=== PATIENT | female | born 1990 | race Caucasian/White ===

== ENCOUNTER 2018-11-24 17:56 | Emergency (ER) | payer MEDICAID ==
[~2018-11-24] VITALS: Ht 175.3 cm; Wt 75.0 kg
[~2018-11-24 17:56] MED LIST: CYCL-1 PO; PARO40TA4 PO
[2018-11-24 19:34] VITALS: BP 102/64
[2018-11-24 20:08] LABS: CLARITY,URINE SLIGHTLY CLOUDY (Clear); COLOR,URINE YELLOW (Yellow); GLUCOSE, URINE NEGATIVE (Neg); KETONES,URINE NEGATIVE (Neg); LEUKOCYTE ESTERASE ,URINE MODERATE (Neg); NITRITES, URINE POSITIVE (Neg); OCCULT BLOOD,URINE LARGE (Neg); PROTEIN,URINE >=300 mg/dl (Neg)
[2018-11-24 20:10] LABS: URINE HCG NEGATIVE (NEG)
[2018-11-24 20:16] LABS: UA COLLECTION TYPE CLN CATCH MIDSTREAM
[2018-11-24 20:18] LABS: BACTERIA,URINE 4+ /HPF (Neg); RBC,URINE TNTC /HPF (0-2); SQUAMOUS EPITHELIAL CELL,UR FEW /LPF (FEW); WBC,URINE TNTC /HPF (0-4)
[2018-11-24] MEDS ORDERED: ACET-3067 PO (21:49)
[2018-11-24] MEDS ORDERED: CEPH500C5 PO (21:49)
[2018-11-24] MEDS ORDERED: phenazopyridine 100mg tablet PO ONE (21:50)
[2018-11-24] MEDS ORDERED: HYDROcodone/acetaminophen 5mg/325mg tablet PO ONE (21:50)
== END 2018-11-24 22:22 | disposition home or self-care (01) ==
LOC: ER 17:56
DX: N39.0 Urinary tract infection, site not specified (principal); Z79.2 Long term (current) use of antibiotics; Z79.899 Other long term (current) drug therapy
CPT/HCPCS: 81001; 81025; 87077; 87088; 87186; 99283

== ENCOUNTER 2019-02-22 18:28 | Emergency (ER) | payer MEDICAID ==
[~2019-02-22] VITALS: Ht 175.3 cm; Wt 133.6 kg
[2019-02-22 18:29] VITALS: BP 130/78
[2019-02-22 20:55] LABS: COLOR,URINE YELLOW (Yellow); GLUCOSE, URINE NEGATIVE (Neg); KETONES,URINE NEGATIVE (Neg); LEUKOCYTE ESTERASE ,URINE NEGATIVE (Neg); NITRITES, URINE NEGATIVE (Neg); OCCULT BLOOD,URINE NEGATIVE (Neg); PROTEIN,URINE NEGATIVE (Neg); UROBILINOGEN,URINE 0.2 E.U/dL (0.2-1.0)
[2019-02-22 20:56] LABS: URINE HCG NEGATIVE (NEG)
[2019-02-22 20:58] LABS: BASOPHILS # (AUTO) 0.1 X10'3 (0-0.2); BASOPHILS % (AUTO) 0.6 % (0-1); EOSINOPHILS # (AUTO) 0.1 X10'3 (0-0.9); EOSINOPHILS % (AUTO) 0.8 % (0-6); HEMATOCRIT 37.6 % (35.0-45.0); HEMOGLOBIN 12.5 g/dl (12.0-16.0); LYMPHOCYTES # (AUTO) 3.4 X10'3 (1.1-4.8); MEAN CORPUSCULAR HEMOGLOBIN 30.7 PG (27.0-31.0); MEAN CORPUSCULAR HGB CONC 33.3 g/dL (33.0-36.5); MEAN PLATELET VOLUME 8.2 FL (7.4-10.4); MONOCYTES # (AUTO) 0.9 X10'3 (0-0.9); NEUTROPHILS # (AUTO) 4.1 X10'3 (1.8-7.7); NEUTROPHILS % (AUTO) 48.6 % (42-75); PLATELET COUNT 301 X10'3 (140-440); RED BLOOD COUNT 4.08 X10'6 (4.20-5.60); RED CELL DISTRIBUTION WIDTH 12.1 % (11.5-14.5); WHITE BLOOD COUNT 8.5 X10'3 (4.5-11.0)
[2019-02-22 20:59] LABS: CLARITY,URINE CLEAR (Clear); UA COLLECTION TYPE VOIDED
[2019-02-22 21:12] LABS: ALANINE AMINOTRANSFERASE 116 U/L (12-78); ALBUMIN 3.7 G/DL (3.4-5.0); ALKALINE PHOSPHATASE 53 IU/L (46-116); ANION GAP 10 (8-16); ASPARTATE AMINO TRANSFERASE 75 U/L (10-37); BILIRUBIN,TOTAL 0.4 MG/DL (0.1-1.0); BLOOD UREA NITROGEN 14 MG/DL (7-18); BUN/CREATININE RATIO 19.2 (6.6-38.0); CHLORIDE 105 MMOL/L (99-107); CREATININE 0.73 MG/DL (0.40-0.90); GLUCOSE 78 MG/DL (70-104); POTASSIUM 3.3 MMOL/L (3.5-5.1); SODIUM 139 MMOL/L (135-145); TOTAL CARBON DIOXIDE 24.5 MMOL/L (24-32); TOTAL PROTEIN 7.4 G/DL (6.4-8.2); eGFR > 90 ML/MIN
[2019-02-22] MEDS ORDERED: PRED20TA PO (21:19)
[2019-02-22] MEDS ORDERED: FLUC150T66 PO (21:19)
[2019-02-22] MEDS ORDERED: CEPH-572 PO (21:26)
[2019-02-23 08:01] LABS: HIV ANTIBODY 1&2 RAPID NON-REACTIVE (Neg)
== END 2019-02-22 21:53 | disposition home or self-care (01) ==
LOC: ER 18:29
DX: N89.8 Other specified noninflammatory disorders of vagina (principal); R21 Rash and other nonspecific skin eruption; F42.4 Excoriation (skin-picking) disorder; R23.4 Changes in skin texture; R30.9 Painful micturition, unspecified; F15.10 Other stimulant abuse, uncomplicated; Z79.2 Long term (current) use of antibiotics; Z79.899 Other long term (current) drug therapy
CPT/HCPCS: 36415; 80053; 81003; 81025; 85025; 86703; 87210; 87491; 99283

== ENCOUNTER 2021-03-19 11:12 | Emergency (ER) | payer MEDICAID ==
[~2021-03-19] VITALS: Ht 175.3 cm; Wt 63.6 kg
[~2021-03-19 11:12] MED LIST changes: +CEPH-585 PO; -CYCL-1 PO; +ESCI20TA39 PO; +NICO-631 TD; +NICO-668 BC; +NITR100C11 PO; +NO HOME MEDS; -PARO40TA4 PO; +RISP2TAB85 PO
[2021-03-19 11:20] VITALS: BP 128/84
[2021-03-19] MEDS ORDERED: acetaminophen 325mg tablet PO ONE (12:35)
== END 2021-03-19 13:05 | disposition home or self-care (01) ==
LOC: ER 11:13
DX: F19.10 Other psychoactive substance abuse, uncomplicated (principal); Z00.00 Encounter for general adult medical examination without abnormal findings; Z79.2 Long term (current) use of antibiotics; Z79.899 Other long term (current) drug therapy; Z98.891 History of uterine scar from previous surgery
CPT/HCPCS: 99281

== ENCOUNTER 2021-06-17 03:56 | Emergency (ER) | payer MEDICAID ==
[~2021-06-17] VITALS: Ht 175.3 cm; Wt 65.2 kg
[2021-06-17 06:02] VITALS: BP 129/87
== END 2021-06-17 08:21 | disposition left against medical advice (07) ==
LOC: ER 03:56
DX: J34.89 Other specified disorders of nose and nasal sinuses (principal); Z53.21 Procedure and treatment not carried out due to patient leaving prior to being seen by health care provider

== ENCOUNTER 2021-10-01 01:28 | Emergency (ER) | payer MEDICAID ==
[~2021-10-01] VITALS: Ht 175.3 cm; Wt 54.5 kg
[2021-10-01 02:32] VITALS: BP 122/73
[2021-10-01] MEDS ORDERED: IBUP-1984 PO (08:15)
[2021-10-01] MEDS ORDERED: ketorolac trometh. 30mg/ml inj. IM ONE (08:20)
== END 2021-10-01 08:59 | disposition home or self-care (01) ==
LOC: ER 01:29
DX: M79.671 Pain in right foot (principal); F41.9 Anxiety disorder, unspecified; Z59.00 Homelessness unspecified; X58.XXXA Exposure to other specified factors, initial encounter; Y93.89 Activity, other specified; Y92.89 Other specified places as the place of occurrence of the external cause; Y99.8 Other external cause status; Z20.822 Contact with and (suspected) exposure to COVID-19
CPT/HCPCS: 87635; 96372; 99283; C9803; J1885

== ENCOUNTER 2021-10-14 22:29 | Emergency (ER) | payer MEDICAID ==
[~2021-10-14] VITALS: Ht 175.3 cm; Wt 63.6 kg
[2021-10-14 22:35] VITALS: BP 126/80
[2021-10-14] MEDS ORDERED: AMOX-117 PO (23:49)
[2021-10-14] MEDS ORDERED: amox tr/potassium clavulanate 875/125mg TAB PO ONE (23:50)
[2021-10-14] MEDS ORDERED: ketorolac trometh inj. 60 MG/2 ML VIAL IM ONE (23:50)
== END 2021-10-15 00:13 | disposition home or self-care (01) ==
LOC: ER 22:29
DX: K04.7 Periapical abscess without sinus (principal); K08.89 Other specified disorders of teeth and supporting structures; R68.84 Jaw pain; F41.9 Anxiety disorder, unspecified; Z79.2 Long term (current) use of antibiotics; Z79.899 Other long term (current) drug therapy
CPT/HCPCS: 96372; 99283; J1885

== ENCOUNTER 2021-10-23 10:53 | Emergency (ER) | payer MEDICAID ==
[~2021-10-23] VITALS: Ht 175.3 cm; Wt 68.2 kg
[~2021-10-23 10:53] MED LIST changes: +AMOX-117 PO
[2021-10-23 11:01] VITALS: BP 111/76
[2021-10-23 11:21] LABS: BASOPHILS % (AUTO) 0.6 % (0-1); EOSINOPHILS # (AUTO) 0.1 X10'3 (0-0.9); EOSINOPHILS % (AUTO) 1.2 % (0-6); HEMATOCRIT 38.5 % (35.0-45.0); HEMOGLOBIN 12.8 g/dl (12.0-16.0); LYMPHOCYTES # (AUTO) 2.8 X10'3 (1.1-4.8); LYMPHOCYTES % (AUTO) 41.5 % (21-51); MEAN CORPUSCULAR HEMOGLOBIN 30.6 PG (27.0-31.0); MEAN CORPUSCULAR HGB CONC 33.4 g/dL (33.0-36.5); MEAN CORPUSCULAR VOLUME 91.6 FL (78-98); MEAN PLATELET VOLUME 7.8 FL (7.4-10.4); MONOCYTES # (AUTO) 0.4 X10'3 (0-0.9); MONOCYTES % (AUTO) 6.5 % (2-12); NEUTROPHILS # (AUTO) 3.4 X10'3 (1.8-7.7); NEUTROPHILS % (AUTO) 50.2 % (42-75); PLATELET COUNT 331 X10'3 (140-440); RED CELL DISTRIBUTION WIDTH 14.7 % (11.5-14.5); WHITE BLOOD COUNT 6.8 X10'3 (4.5-11.0)
[2021-10-23 11:34] LABS: ALANINE AMINOTRANSFERASE 43 U/L (12-78); ALBUMIN 3.8 G/DL (3.4-5.0); ALBUMIN/GLOBULIN RATIO 0.9 (1.1-1.5); ALKALINE PHOSPHATASE 66 IU/L (46-116); ANION GAP 10 (8-16); ASPARTATE AMINO TRANSFERASE 26 U/L (10-37); BILIRUBIN,TOTAL 0.5 MG/DL (0.1-1.0); BLOOD UREA NITROGEN 16 MG/DL (7-18); CALCIUM 9.3 MG/DL (8.5-10.1); CHLORIDE 105 MMOL/L (99-107); CREATININE 0.64 MG/DL (0.40-0.90); GLUCOSE 95 MG/DL (70-104); SODIUM 139 MMOL/L (135-145); TOTAL PROTEIN 7.9 G/DL (6.4-8.2); eGFR > 90 ML/MIN
[2021-10-23 11:40] LABS: ETHANOL < 0.010 GM/DL (0.0-0.010)
--- NOTE | 2021-10-23 12:15 | NUR ---
Received patient to bed #24 at 1200. Pt ambulated to bed with [facility], pt's handcuffs were taken off and pt was changed into green scrubs. Pt has been cooperative.
[2021-10-23 12:28] LABS: CLARITY,URINE SLIGHTLY CLOUDY (Clear); COLOR,URINE YELLOW (Yellow); GLUCOSE, URINE NEGATIVE (Neg); KETONES,URINE NEGATIVE (Neg); LEUKOCYTE ESTERASE ,URINE NEGATIVE (Neg); NITRITES, URINE NEGATIVE (Neg); OCCULT BLOOD,URINE NEGATIVE (Neg); PROTEIN,URINE NEGATIVE (Neg); UA COLLECTION TYPE CLN CATCH MIDSTREAM; URINE HCG NEGATIVE (NEG)
[2021-10-23 12:37] LABS: BACTERIA,URINE 3+ /HPF (Neg); MUCUS STRANDS MANY /LPF (Neg); RBC,URINE NONE SEEN /HPF (0-2); SQUAMOUS EPITHELIAL CELL,UR MANY /LPF (FEW)
[2021-10-23 12:45] LABS: URINE AMPHETAMINE SCREEN NEGATIVE (Neg); URINE BARBITUATE SCREEN NEGATIVE (Neg); URINE BENZODIAZEPINES SCREEN NEGATIVE (Neg); URINE CANNABINOID SCREEN POSITIVE (Neg); URINE COCAINE SCREEN NEGATIVE (Neg); URINE METHADONE SCREEN NEGATIVE (Neg); URINE OPIATE SCREEN NEGATIVE (Neg); URINE PHENCYCLIDINE SCREEN NEGATIVE (Neg)
--- NOTE | 2021-10-23 12:52 | NUR ---
One on one with patient to assess psychotic symptoms. Pt sitting up in bed requested a cup coffee and stated she was hungry, coffee and sandwich were provided. 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 When asked if she knew date, year or current president pt shrugged shoulders and stated "I don't know." "I have no idea." "Uh-huh." Pt denies A/VH, but does endorse suicidal thoughts and wanting to be ." Pt again shrugs shoulders when asked if she has had any recent loss or stressors. Pt was [facility] for making suicidal statements telling the staff "I just want you to shoot me." "I don't care about living." Pt was arrested Saturday for public intoxication. Pt is a poor historian and says "I don't know" about all medical questions. Pt has varies ER visits in 2019. Pt's history shows she was admitted to [facility] on 01/2021 and at one time was followed by [facility], but not currently. Pt has hx of substance use cocaine and heroin. Current tox screen is positive for THC. Pt denies any home medications.
[2021-10-23] MEDS ORDERED: LORazepam 1 MG tablet PO ONE (13:25)
[2021-10-23] MEDS ORDERED: OLANZapine 2.5MG tablet PO SCH (13:35)
[2021-10-23] MEDS ORDERED: OLANZAPINE 5 MG TABLET PO SCH (13:40)
--- NOTE | 2021-10-23 13:50 | NUR ---
Pt was out of bed asking "When can I leave?" Pt is restless and wanting to leave. Pt appears to be responding to internal stimuli, rocking back and forth on her bed and inappropriately laughing. Received order for PO Ativan 1mg and Zyprexa 5mg. Pt took medication without issue.
--- NOTE | 2021-10-23 14:25 | NUR ---
PATIENT ELOPEMENT: PATIENT NOTED PACING AROUND THE UNIT RESPONDING TO AUDITORY HALLUCINATIONS/ INTERNAL STIMULI. NOTED INAPPROPRIATELY LAUGHING OUT LOUD AND ENDORSING THAT SHE WANTS TO GET OUT OF HERE. PATIENT REQUIRING FREQUENT REDIRECTION BACK TO HER ROOM. PATIENT GIVEN ONE TIME DOSE OF ATIVAN 1MG PO AND ZYPREXA 5MG PO PER MD ORDER. PATIENT CONTINUED TO WANDER OUT OF HER ROOM INTO THE HALLWAY CONSISTENTLY. PATIENT ELOPED FROM THE UNIT AT APPROXIMATELY 1405 DESPITE ATTEMPTS TO REDIRECT. ER SECURITY CONTACTED WITH LAST KNOWN SIGHTING OF PATIENT OUTSIDE OF HOSPITAL PROPERTY. FLOYD NOTIFIED OF ELOPEMENT.
== END 2021-10-23 14:30 ==
LOC: ER 10:53
DX: R45.851 Suicidal ideations (principal); Z20.822 Contact with and (suspected) exposure to COVID-19; M79.641 Pain in right hand; F41.9 Anxiety disorder, unspecified; Z79.2 Long term (current) use of antibiotics; Z79.899 Other long term (current) drug therapy
CPT/HCPCS: 36415; 80053; 80305; 80320; 81001; 81025; 84443; 85025; 87635; 99285; C9803

== ENCOUNTER 2021-11-02 16:39 | Emergency (ER) | payer MEDICAID ==
[~2021-11-02] VITALS: Ht 175.3 cm; Wt 68.6 kg
[~2021-11-02 16:39] MED LIST changes: -AMOX-117 PO
[2021-11-02 17:10] VITALS: BP 113/72
[2021-11-02] MEDS ORDERED: ketorolac trometh inj. 60 MG/2 ML VIAL IM ONE (18:25)
== END 2021-11-02 19:00 | disposition home or self-care (01) ==
LOC: ER 16:40
DX: S39.012A Strain of muscle, fascia and tendon of lower back, initial encounter (principal); F41.9 Anxiety disorder, unspecified; Z79.2 Long term (current) use of antibiotics; Z79.899 Other long term (current) drug therapy; X58.XXXA Exposure to other specified factors, initial encounter; Y93.89 Activity, other specified; Y92.89 Other specified places as the place of occurrence of the external cause; Y99.8 Other external cause status
CPT/HCPCS: 96372; 99283; J1885

== ENCOUNTER 2021-11-05 00:46 | Emergency (ER) | payer MEDICAID ==
[~2021-11-05] VITALS: Ht 175.3 cm; Wt 69.9 kg
[2021-11-05 01:54] VITALS: BP 115/75
[2021-11-05] MEDS ORDERED: CEPH-585 PO (07:17)
[2021-11-05] MEDS ORDERED: ketorolac trometh inj. 60 MG/2 ML VIAL IM ONE (07:20)
[2021-11-05 07:46] LABS: CLARITY,URINE CLOUDY (Clear); COLOR,URINE YELLOW (Yellow); GLUCOSE, URINE NEGATIVE (Neg); KETONES,URINE NEGATIVE (Neg); LEUKOCYTE ESTERASE ,URINE NEGATIVE (Neg); NITRITES, URINE NEGATIVE (Neg); OCCULT BLOOD,URINE NEGATIVE (Neg); PROTEIN,URINE NEGATIVE (Neg); UA COLLECTION TYPE CLN CATCH MIDSTREAM; UROBILINOGEN,URINE 0.2 E.U/dL (0.2-1.0)
[2021-11-05 07:48] LABS: URINE HCG NEGATIVE (NEG)
[2021-11-05 07:54] LABS: BACTERIA,URINE 4+ /HPF (Neg); CAL OXALATE CRYSTALS FEW /HPF (NEGATIVE); MUCUS STRANDS MODERATE /LPF (Neg); RBC,URINE 0-2 /HPF (0-2); SQUAMOUS EPITHELIAL CELL,UR MANY /LPF (FEW)
== END 2021-11-05 08:50 | disposition home or self-care (01) ==
LOC: ER 00:47
DX: N39.0 Urinary tract infection, site not specified (principal); G89.29 Other chronic pain; M54.50 Low back pain, unspecified; R30.0 Dysuria; F41.9 Anxiety disorder, unspecified; Z79.2 Long term (current) use of antibiotics; Z79.899 Other long term (current) drug therapy
CPT/HCPCS: 81001; 81025; 96372; 99283; J1885

== ENCOUNTER 2021-12-03 20:02 | Emergency (ER) | payer MEDICAID ==
[~2021-12-03] VITALS: Ht 172.7 cm; Wt 70.5 kg
[2021-12-03 21:26] VITALS: BP 101/60
== END 2021-12-03 22:32 | disposition left against medical advice (07) ==
LOC: ER 20:03
DX: M54.50 Low back pain, unspecified (principal); G89.29 Other chronic pain; Z79.899 Other long term (current) drug therapy
CPT/HCPCS: 99281

== ENCOUNTER 2022-02-04 01:17 | Emergency (ER) | payer MEDICAID ==
[~2022-02-04] VITALS: Ht 175.3 cm; Wt 71.8 kg
[2022-02-04 01:25] VITALS: BP 114/83
[2022-02-04] MEDS ORDERED: DOXYCYCLINE 100MG CAPSULE PO STA (03:02)
[2022-02-04] MEDS ORDERED: ketorolac trometh inj. 60 MG/2 ML VIAL IM ONE (03:05)
[2022-02-04] MEDS ORDERED: DOXY-1 PO (03:07)
== END 2022-02-04 03:38 | disposition home or self-care (01) ==
LOC: ER 01:18
DX: L98.498 Non-pressure chronic ulcer of skin of other sites with other specified severity (principal); M54.50 Low back pain, unspecified; F41.9 Anxiety disorder, unspecified; G89.29 Other chronic pain; Z79.2 Long term (current) use of antibiotics; Z79.899 Other long term (current) drug therapy
CPT/HCPCS: 96372; 99283; J1885

== ENCOUNTER 2022-04-07 01:14 | Emergency (ER) | payer MEDICAID ==
[~2022-04-07] VITALS: Ht 175.3 cm; Wt 69.1 kg
[2022-04-07 01:18] VITALS: BP 126/87
[2022-04-07] MEDS ORDERED: ketorolac trometh inj. 60 MG/2 ML VIAL IM ONE (02:25)
[2022-04-07] MEDS ORDERED: acetaminophen 325mg tablet PO ONE (02:25)
== END 2022-04-07 03:07 | disposition home or self-care (01) ==
LOC: ER 01:15
DX: M54.50 Low back pain, unspecified (principal); G89.29 Other chronic pain; F41.9 Anxiety disorder, unspecified; Z79.899 Other long term (current) drug therapy
CPT/HCPCS: 96372; 99283; J1885; J7040

== ENCOUNTER 2022-05-24 17:50 | Emergency (ER) | payer MEDICAID ==
[~2022-05-24] VITALS: Ht 172.7 cm; Wt 63.6 kg
[2022-05-24 18:03] VITALS: BP 95/61
[2022-05-24] MEDS ORDERED: oxyCODONE IR 5mg (immed. release) tablet PO ONE (18:35)
[2022-05-24] MEDS ORDERED: ondansetron 4mg rapidly disintigrating tab PO ONE (18:35)
== END 2022-05-24 22:15 ==
LOC: ER 17:50
DX: T65.6X1A Toxic effect of paints and dyes, not elsewhere classified, accidental (unintentional), initial encounter; G89.29 Other chronic pain; M54.50 Low back pain, unspecified
CPT/HCPCS: 99283

== ENCOUNTER 2024-01-25 12:52 | Emergency (ER) | payer MEDICAID ==
[~2024-01-25] VITALS: Ht 175.3 cm; Wt 62.3 kg
[~2024-01-25 12:52] MED LIST changes: +RISP-32 PO; -RISP2TAB85 PO
[2024-01-25 13:17] LABS: URINE HCG NEGATIVE (NEG)
[2024-01-25 13:19] LABS: CLARITY,URINE SLIGHTLY CLOUDY (Clear); COLOR,URINE ORANGE (Yellow); UA COLLECTION TYPE CLN CATCH MIDSTREAM
[2024-01-25 13:27] LABS: BACTERIA,URINE 1+ /HPF (Neg); SQUAMOUS EPITHELIAL CELL,UR MODERATE /LPF (FEW); WBC,URINE 30-50 /HPF (0-4)
[2024-01-25 13:28] LABS: CAL OXALATE CRYSTALS 2+ /HPF (NEGATIVE); MUCUS STRANDS FEW /LPF (Neg)
[2024-01-25] MEDS ORDERED: SULF1TAB45 PO (14:41)
[2024-01-25] MEDS ORDERED: METR-159 PO (14:41)
[2024-01-25 14:57] VITALS: BP 103/68; PULSE 108; RESP 16; TEMP 98; O2SAT 100
== END 2024-01-25 14:58 | disposition home or self-care (01) ==
LOC: ER 12:54
DX: N23 Unspecified renal colic (principal); A59.9 Trichomoniasis, unspecified; G89.29 Other chronic pain; F41.9 Anxiety disorder, unspecified; Z79.2 Long term (current) use of antibiotics; Z79.899 Other long term (current) drug therapy
CPT/HCPCS: 81001; 81025; 87077; 87088; 87186; 99283

== ENCOUNTER 2024-05-03 17:03 | Emergency (ER) | payer MEDICAID ==
[~2024-05-03] VITALS: Ht 170.2 cm; Wt 61.4 kg
[2024-05-03 19:08] VITALS: BP 115/70
[2024-05-03] MEDS: ondansetron 4mg rapidly disintigrating tab PO ONE (19:23)
[2024-05-03] MEDS: LORazepam 1 MG tablet PO ONE (20:15)
[2024-05-04 00:45] VITALS: PULSE 73; RESP 16; TEMP 97.8; O2SAT 98
== END 2024-05-04 00:47 | disposition home or self-care (01) ==
LOC: ER 17:03
DX: T50.901A Poisoning by unspecified drugs, medicaments and biological substances, accidental (unintentional), initial encounter (principal); Z79.2 Long term (current) use of antibiotics; Z79.899 Other long term (current) drug therapy; Y92.89 Other specified places as the place of occurrence of the external cause
CPT/HCPCS: 99285

== ENCOUNTER 2024-11-25 11:52 | Emergency (ER) | payer MEDICAID ==
[~2024-11-25] VITALS: Ht 175.3 cm; Wt 91.5 kg
[2024-11-25 12:09] VITALS: BP 134/83; PULSE 81; RESP 18; TEMP 97.6; O2SAT 100
[2024-11-25] MEDS: LIDOcaine 1% 30ml preserv. free vial IJ STA (15:45)
== END 2024-11-25 17:31 | disposition home or self-care (01) ==
LOC: ER 11:53
DX: M79.5 Residual foreign body in soft tissue (principal); F41.9 Anxiety disorder, unspecified
CPT/HCPCS: 10120; 99285; A4358; C1758